=== PATIENT | male | born 1995 | race Caucasian/White ===

== ENCOUNTER 2017-08-03 23:56 | Observation (INO) ==
[2017-08-04] MEDS ORDERED: SODIUM CHLORIDE 0.9% 500 ML IV STA (00:20)
[2017-08-04 00:49] LABS: Basophils # 0.1 10*3/uL (0.0-0.2); Basophils % 0.3 % (0.0-0.8); Eosinophils # 0.2 10*3/uL (0.0-0.87); Eosinophils % 1.2 % (0.00-10.9); Hematocrit 45.2 VOL% (42.0-52.0); Hemoglobin 15.5 GM/DL (14.0-18.0); Immature Granulocytes % 0.5 %; Lymphocytes # 3.9 10*3/uL (1.4-4.0); Lymphocytes % 21.1 % (21.2-54.2); Mean Corpuscular HGB Conc 34.3 GM/DL (32-36); Mean Corpuscular Hemoglobin 28 PG (27-34); Mean Corpuscular Volume 82.5 FL (87-102); Mean Platelet Volume 9.7 FL (9.6-12.0); Monocytes # 2.1 10*3/uL (0.11-0.8); Monocytes % 11.6 % (1.7-12.7); Neutrophils # 12.1 10*3/uL (1.4-7.4); Neutrophils % 65.3 % (38.7-73.9); Platelet Count 295 T/CUMM (130-400); Red Blood Count 5.48 MC/CUMM (3.8-5.5); Red Cell Distribution Width 13.5 % (9.3-17.3); White Blood Count 18.5 T/CUMM (4-12)
[2017-08-04 01:24] LABS: Albumin 4.3 G/DL (3.4-5.0); Bilirubin,Total 0.7 MG/DL (0.2-1.0); Osmolality,Calculated 271.8 MOS/KG (273-304); Potassium 4.2 MMOL/L (3.5-5.1); Thyroid Stimulating Hormone 4.72 uIU/ml (0.358-3.74); Total Protein 7.4 G/DL (6.4-8.3)
[2017-08-04 01:54] LABS: Sedimentation Rate-Westergren 20 MM/HR (0-15)
[2017-08-04] MEDS ORDERED: DEXAMETHASONE 4 MG/1 ML VIAL MISC INJ STA (02:19)
[2017-08-04] MEDS ORDERED: PIPERACILLIN/TAZOBACTAM 3,375 MG in SODIUM CHLORIDE 0.9% 100 ML IV STA (02:19)
[2017-08-04] MEDS ORDERED: PIPERACILLIN/TAZOBACTAM 3,375 MG VIAL IV ONE (02:24)
[2017-08-04] MEDS ORDERED: SODIUM CHLORIDE 0.9% 100 ML IV ONE (02:25)
[2017-08-04] MEDS ORDERED: DEXAMETHASONE 4 MG/1 ML VIAL ONE (02:29)
[2017-08-04] MEDS ORDERED: HYDROmorphone 2 MG/1 ML VIAL IV PRN (03:25)
[2017-08-04] MEDS ORDERED: ACETAMINOPHEN 500 MG TABLET PO PRN (03:25)
[2017-08-04] MEDS ORDERED: ONDANSETRON 4 MG/2 ML VIAL IV PRN (03:25)
[2017-08-04 05:09] LABS: Basophils # 0.1 10*3/uL (0.0-0.2); Basophils % 0.3 % (0.0-0.8); Eosinophils # 0.1 10*3/uL (0.0-0.87); Eosinophils % 0.5 % (0.00-10.9); Hematocrit 44.7 VOL% (42.0-52.0); Hemoglobin 15.5 GM/DL (14.0-18.0); Immature Granulocytes % 0.5 %; Immature Granulocytes Absolute 0.09 #; Lymphocytes # 1.6 10*3/uL (1.4-4.0); Lymphocytes % 9.2 % (21.2-54.2); Mean Corpuscular HGB Conc 34.7 GM/DL (32-36); Mean Corpuscular Hemoglobin 28 PG (27-34); Mean Corpuscular Volume 80.7 FL (87-102); Mean Platelet Volume 9.9 FL (9.6-12.0); Monocytes # 0.7 10*3/uL (0.11-0.8); Monocytes % 4.4 % (1.7-12.7); Neutrophils # 14.4 10*3/uL (1.4-7.4); Neutrophils % 85.1 % (38.7-73.9); PT Patient Result 10.2 SECS; Platelet Count 297 T/CUMM (130-400); Red Blood Count 5.54 MC/CUMM (3.8-5.5); Red Cell Distribution Width 13.5 % (9.3-17.3); White Blood Count 16.9 T/CUMM (4-12)
[2017-08-04 05:37] LABS: Calcium 9.1 MG/DL (8.5-10.1); Potassium 4.6 MMOL/L (3.5-5.1)
[2017-08-04] MEDS: SODIUM CHLORIDE 0.9% 1,000 ML IV SCH ×2 (06:10→12:20)
[2017-08-04] MEDS ORDERED: LIDOCAINE 1%/EPI INJ 20 ML VIAL MISC INJ ONE (10:00)
[2017-08-04] MEDS ORDERED: DEXAMETHASONE 4 MG/1 ML VIAL IV SCH (10:30)
[2017-08-04] MEDS ORDERED: PIPERACILLIN/TAZOBACTAM 3,375 MG in SODIUM CHLORIDE 0.9% 100 ML IV SCH (10:30)
[2017-08-04 11:06] VITALS: BP 119/53
== END 2017-08-04 12:28 | disposition home or self-care (01) | DRG 581 ==
LOC: N.ED 23:56 → N.EDINP 08-04 02:20 → INTOOBSV 08-04 02:20 → N.5E 08-04 02:55
PROVIDERS: ADMIT Otolaryngology; ATTEND Otolaryngology